=== PATIENT | male | born 1950 | race Caucasian/White ===

== ENCOUNTER 2017-02-22 11:20 | Inpatient (IN) | payer MEDICARE, OTHER ==
[~2017-02-22] VITALS: Ht 170.2 cm; Wt 51.9 kg
--- NOTE | ~2017-02-22 | FD ---
ADMIT: 02/24/2017 RM/LOC: 630 [facility] MR#: [id number] 2620 [facility] [address] [place] [phone] MANGO LARES [address] [place] [address] Final Diagnosis SEX: M AGE: 67 : 1950 ADMISSION DATE: 02/24/2017 DISCHARGE DATE: 02/25/2017 FINAL DIAGNOSIS: Syncope. COMPLICATING DIAGNOSES: 1. Dehydration. 2. Severe protein-calorie malnutrition. 3. Crohn disease. 4. Status post total colectomy. 5. Diabetes mellitus type 2. 6. Hypomagnesemia. 7. Post-polio syndrome. 8. Anemia of chronic disease. 9. Ileostomy status. Carter Ceron MD/ modl JOB #: [id number] CC: Carter Ceron MD, Attending Physician Carter Ceron MD, Family Physician
--- NOTE | ~2017-02-22 | WND ---
ADMIT: 02/22/2017 RM/LOC: 630 [facility] MR#: [id number] [address] [facility] [address] [place], [place] [address] MANGO LARES [address] [place] [address] W[facility] Care Clinic SEX: M AGE: 67 : 1950 DATE OF VISIT: 02/23/2017 TIME IN: Time in initially is 1100 hours to 1115 hours. I returned at 0130 hours to 0145 hours. Total time 30 minutes. TIME OUT: REASON FOR VISIT: Evaluation and treatment of peristomal irritation. A request for wound care from Dr. Rhodes. HISTORY OF PRESENT ILLNESS: This is a 67-year-old, male, well known to [facility]. He has a history of Crohn disease. He has been followed routinely by Wound Care since 2014 for care of peristomal irritation and also for incisional dehiscence. Most recently, he was seen by Wound Care in November of 2016. He had a history of Crohn disease and underwent a total proctocolectomy on 08/12/2016. He had an end ileostomy that was initially in the left upper quadrant that had recessed below the surface of the skin with deep creases. He also had abscesses that were drained by Interventional Radiology. He went to [place] at [facility], where Dr. Cardona revised the stoma and moved it to his left lower quadrant. He reports that he developed four abdominal abscesses after the surgery. He spent 3 weeks in a medically-induced coma. After he was released from [facility], he did go to [facility] for rehab. He has been in the [facility] for the last 2 weeks. He presented yesterday with syncope and volume depletion and was seen in the emergency room and admitted for further evaluation and cares. He also was noted to have significant yeast infection on his abdominal wall and around his stoma and into his perineal and groin and buttocks areas. PAST MEDICAL HISTORY: Fractured left hip. Syncope episodes. Complications of abdominal wall abscesses with drainage. Small bowel cutaneous fistulas. Mental status changes to all the above. Anemia of chronic disease. Crohn disease, status post total proctocolectomy. Sepsis. Malnutrition. Weight loss. Type 2 diabetes. Yeast infections. History of hyperlipidemia, vitamin B12 deficiency, magnesium deficiency, polio as a child, fractured left hip. ALLERGIES: Cephalosporin, morphine derivatives, penicillin, sulfa, and codeine. CURRENT MEDICATIONS: Per the MAR. Please see the MAR for further details. 1. Atarax. 2. Diflucan. 3. Effexor. 4. Flomax. 5. KCl. 6. Lopid. 7. Magnesium oxide. 8. Melatonin. 9. Orazinc. 10.Protonix. ADMIT: 02/22/2017 RM/LOC: 630 [facility] MR#: [id number] [address] [place] [id number] MANGO LARES [address] [place] [address] Wound Care Clinic SEX: M AGE: 67 : 1950 11.Zyrtec. 12.Flonase. 13.Lovenox. 14.Normal saline. PRN medications: 1. Colace. 2. Imodium. 3. Maalox. 4. Requip. 5. Tylenol. 6. Ultram. 7. Glucagon. 8. Nitrostat. FAMILY HISTORY: Significant for diabetes in his uncles, heart disease in his father. Father with skin cancer. SOCIAL HISTORY: He is . He is retired. He lives in [place] with his spouse. He has a Bachelor of Science degree. REVIEW OF SYSTEMS: He is examined in his hospital room where he is awake, alert, and oriented x3. He denies any recent fever or chills. No nausea or vomiting. No cough, cold, or chest pain. He states he is feeling much better since he had some fluids. He states that he does have a hard time getting enough fluids in. He said his weight is running around 110 pounds. PHYSICAL EXAMINATION: Focused exam to his abdomen. In his left lower quadrant is his stoma that is slightly oval, 1 cm x 2 cm, and elevates approximately 0.5 cm above the skin surface. The os is in the center but it tips slightly towards 12 o'clock. On his abdomen is a midline incision that is dehisced, 2.2 cm x 0.5 cm, depth of 0.5 cm. Visible wound base is bright red granulation tissue. He does have significant abdominal redness for an area of 12.5 cm x 31 cm on his abdomen. There are satellite communities. There are no open ulcerations noted. Into his groin for an area of 16 cm x 19 cm is a continuation of the redness with satellite communities, slight superficial openings in the groin folds, and perirectal area is red and 5 cm x 10 cm with satellite communities. No open ulcerations noted. ASSESSMENT: 1. Functioning end ileostomy SACS L1 hyperemic TV all quadrants. 2. Fungal dermatitis related to Clari and peristomal, perineal, and perirectal area. TREATMENT PLAN: He did have a shower and Dial soap was used. Area rinsed and patted dry. Aloe [place] antifungal was applied. Encouraged that this be done twice daily. To his stoma, the old ostomy appliance was removed without difficulty. The peristomal area was washed with water only. He does have ADMIT: 02/22/2017 RM/LOC: 630 [facility] MR#: [id number] [address] [address] MANGO LARES [address] [place] [id number] [facility] SEX: M AGE: 67 : 1950 nystatin powder that he can use at home, peristomal area, but today, we will use Adapt Stoma Powder that was placed on the abdomen and sealed with No Sting Barrier [place]out x2. The extra thin DuoDerm was then cut to fit around the stoma. An Adapt ring #[id number] was placed to peristomal area. The Coloplast Eskridge SenSura clip pouch #[id number] was applied with the Coloplast belt. Coloplast barrier strips were also placed around the edges. To the abdominal wound, after cleansing with warm soapy water, rinsing, and patting dry, Aquacel Ag was placed, covered with wound VAC drape. This dressing can be changed at the same time that his ostomy appliances are changed every 3 days and as needed for leakage. A new followup appointment in Wound Care outpatient clinic is scheduled for 03/03/2017, at 2 p.m. An E-script for marathon was sent to [facility]. Thank you for this referral and Wound will continue to follow. Radha Herrera APRN/ damien JOB #: [id number] CC: Carter Ceron, Attending Physician Carter Ceron, Family Physician
[~2017-02-22 11:20] MED LIST: ARBINOXA4 MG PO; B-12 INJ1000 MCG/M SQ; CARBINOXAMINE MA4 MG PO; DELTASONE DPS1 MG PO; DELTASONE DPS10 MG PO; DIFLUCAN DPS100 MG PO; DIFLUCAN DPS200 MG PO; EFFEXOR DPS75 MG PO; EFFEXOR XR150 MG PO; EFFEXOR XR75 MG PO; ENTOCORT EC DPS3 MG PO; ENTYVIO300 MG IV; FLAGYL-DPS500 MG PO; FLOMAX DPS0.4 MG PO; GLUCOPHAGE-DPS500 MG PO; HYDROXYZINE; INTRALIPID 20%500 ML IV; INVANZ1 G1 PO; KCL40 MEQ/30 PO; KLOR-CON M2020 MEQ PO; KLOR-CON20 MEQ PO; LEVAQUIN500 MG PO; LOPID DPS600 MG PO; LOPID600 MG PO; LUTEIN10 MG PO; MAALOX DPS30 ML PO; MAGNESIUM IV; METAMUCIL SF P3.4 GM PO; MOTRIN-DPS600 MG PO; MUCINEX600 MG PO; NASACORT16.9 ML NS; NORCO 5-325 TA1 EACH PO; PRILOSEC DPS20 MG PO; PRILOSEC10 M1 PO; QUESTRAN DPS4 GM PO; RAPAFLO8 MG PO; ROBITUSSIN100 MG/5 M PO; SFROWASA4 GM/60 ML PR; SINGULAIR10 MG PO; SLOW-MAG71.5 MG PO; SOD BICARB TAB650 MG PO; SODIUM CHLORIDE10 ML IV; SURFAK DPS240 MG PO; SYMBICORT 16010.2 GM IH; SYMBICORT80 MCG/6.9 IH; TPN IV; TYLENOL DPS325 MG PO; ULTRAM DPS50 MG PO; VANCOCIN-DPS1 GM IV; VANCOCIN250 MG PO; VENOFER200 MG/10 IV; VISTARIL-DPS50 MG PO; VITAMIN D400 UNI2 PO; ZINC CHELATED50 MG PO; ZINC50 M1 PO; ZYRTEC DPS10 MG PO; ZYRTEC10 M3 PO
--- NOTE | 2017-02-25 08:06 | HP ---
ADMIT: 02/22/2017 RM/LOC: 426 [facility] MR#: [id number] [address] [address] MNAGO LARES [address] [place] [address] History and Physical SEX: M AGE: 67 : 1950 DATE OF SERVICE: CHIEF COMPLAINT: Syncope, volume depletion. HISTORY: Mango Lares presents with history of syncope at home. He has had this happen to him before. He has advanced Crohn's, multiple operations, and has issues with maintaining his fluid status. He had one episode of near syncope and one episode of complete syncope early this morning. His called the paramedics. He had a borderline low blood pressures, was given 1 L of fluid in the emergency room with improvement in his symptoms, but it was not felt he was well enough to go home. He said he has otherwise not been feeling poorly as of late. This is in the background of a patient who has spent most of the last 3 months in either acute care or skilled care. He was at [facility] for 46 days due to complications of a bowel perforation and sepsis and respiratory failure. Eventually, he recovered and was transferred to [facility] for an additional 3 weeks of rehab. He has been home for about [address] Ceron in the office on February 19. I did review Dr. Ceron's narrative from that note. Assessment at that time being Crohn disease, status post total colectomy status post sepsis, malnutrition, weight loss, and type [address] Ceron noted significant yeast infection on his abdominal wall for which we elected to put him on Diflucan due to concern about drug interactions. Victor Hugo, once again reiterates that he has otherwise not been feeling ill. PAST MEDICAL HISTORY: Notable for background data which I just described, he was last inpatient at [facility] [place], September 20 to September 28 with a fractured left hip, and also from a syncopal episode. He has had complications of abdominal wall abscess, small bowel cutaneous fistula, mental status change secondary to all above; anemia of chronic disease. CHRONIC ILLNESSES: Crohn disease, depression, type 2 diabetes, hyperlipidemia, polio with chronic left leg weakness, osteoporosis, and osteoarthritis. PAST SURGICAL HISTORY: Surgeries include total colectomy uncertain as to what small-bowel he has had removed, he has had appendectomy, cholecystectomy, ventral hernia repairs, ileocolic fistula surgery, colostomy revision, tonsillectomy, orthopedic surgery for left hip fracture, and various colonoscopies. ALLERGIES: INTOLERANCE TO CEPHALOSPORINS, CODEINE, LORTAB, MORPHINE, PENICILLIN, PERCOCET, AND SULFA DRUGS. MEDICATIONS: By office record, he is on: 1. Calcium carbonate 500 mg once a day. 2. Prevacid 3 mg/mL 30 mg daily. 3. Gemfibrozil 600 mg once a day. 4. Hydroxyzine 50 mg two once a day. 5. Lidoderm patch b.i.d. ADMIT: 02/22/2017 RM/LOC: 426 [facility] MR#: [id number] [address] [address] MANGO LARES [address] [place] [address] History and Physical SEX: M AGE: 67 : 1950 6. Loperamide 2 mg q.i.d. 7. Magnesium chloride 200 mg/mL twice weekly infusion at [facility]. 8. Also gets normal saline 1 L at that time per the patient. 9. Melatonin 3 mg two at bedtime. 10.Metformin 500 mg once a day. 11.Nasacort spray once a day p.r.n. with Proventil, oxycodone, tramadol, Tylenol. 12.Also on Zyrtec 10 mg daily. 13.Venlafaxine 75 mg b.i.d. FAMILY HISTORY: Positive in various relatives of coronary artery disease, hypertension, osteoarthritis, Alzheimer's, depression, and migraine. SOCIAL HISTORY: He is retired. His accompanies him. He does not smoke or drink. REVIEW OF SYSTEMS: GENERAL: Denies chills or fever. ENT: No acute ear, nose, throat, or eye complaints. GI: As discussed above. He has had normal ostomy output. He has trouble taking enough fluids. He is not having any nausea or vomiting or severe abdominal pain at this time. : Voiding okay. MUSCLE, BONE, AND JOINT: He has chronic atrophy of his left leg and some weakness of that leg. This is the side that he had the hip fracture. Getting around mostly without any walking aids now. SKIN: Abdominal rash consistent with yeast around the ostomy. BACK: Nontender. NEURO/PSYCH: All satisfactory at this time. History of depression, stable. PHYSICAL EXAMINATION: GENERAL: This is a pleasant gentleman. In spite of all his problems that he has encountered, he is in good spirits when I interview him. VITAL SIGNS: Most recent vitals; temperature 96.2, pulse 82, respirations 16, blood pressure 107/66, O2 saturation 96% on room air. ENT: Oral mucous membranes are moist. No nasal discharge. Hearing satisfactory. Eyes are grossly normal. Pupils are equal. NECK: No tenderness. LUNGS: Clear throughout. Normal respiratory effort. HEART: Regular rhythm. I do not hear a murmur. BACK: Nontender to palpation of the spine or the rest of his back. ABDOMEN: Flat, nontender to palpation. Has an ostomy in the left lower quadrant. I believe this to be an ileostomy. No obvious hernias as a near completely resolved open area to the right of his ostomy. He has a large area of candidiasis of the skin surrounding the ostomy and in the groin. GENITALIA: Unremarkable to cursory exam other than the hand. EXTREMITIES: Upper extremities, limited exam grossly normal. Lower extremities, no edema in either leg. Left leg atrophic from prior polio. No swelling of the right leg. ADMIT: 02/22/2017 RM/LOC: 426 [facility] MR#: [id number] 2620 [facility] [address] [place] [id number] MANGO LARES [address] [place] [address] History and Physical SEX: M AGE: 67 : 1950 NEURO: Grossly intact. PSYCH: He is calm, not anxious or depressed. LABORATORY DATA: Labs were reviewed. His phosphorus is 2.9, corrected calcium 12.5 (this is a new finding of hypercalcemia). Creatinine is 1.4 which is a slight increase from baseline of 1.1, but somewhat in line with the previous readings in the hospital in September. Albumin is mildly decreased at 3.3. Total protein is elevated at 8.5. Liver functions, alkaline phosphatase elevated at 286, was 247 in November, 171 in September, and 92 in August. Glucose is currently normal range. He is diabetic. White count 10.6, hemoglobin 11.3. IMPRESSION: 1. Syncope probably secondary to volume depletion and hypertension. 2. New hypercalcemia, cause is unclear at this time. This will need to be evaluated further. 3. Chronic Crohn disease status post multiple surgeries. 4. Chronic hypomagnesemia. Today's magnesium is 1.5. 5. Some degree of malnutrition and weight loss. 6. Candidiasis of the skin of the abdominal wall. PLAN: We will continue to recheck his calcium in the morning. Also replace IV magnesium and recheck that. We will tentatively plan Diflucan if no significant drug interactions and pharmacy will assist us in that. As dietary, see about any additional dietary interventions and will adjust treatment as clinical course deems appropriate. Johnson Rhodes MD/ damien JOB #: [id number] CC: Carter Ceron, Attending Physician Carter Ceron, Family Physician
[2017-02-26] MEDS ORDERED: LOPID DPS600 MG PO (16:41)
[2017-02-26] MEDS ORDERED: DIFLUCAN DPS100 MG PO (16:41)
[2017-02-26] MEDS ORDERED: ATARAX DPS50 MG PO (16:42)
[2017-02-26] MEDS ORDERED: GLUCAGON EMERGEN1 MG IM (16:42)
[2017-02-26] MEDS ORDERED: LOPERAMIDE2 M1 PO (16:43)
[2017-02-26] MEDS ORDERED: MAGNESIUM200 MG/1 M IV (16:43)
[2017-02-26] MEDS ORDERED: MELATIN3 MG PO (16:44)
[2017-02-26] MEDS ORDERED: NASACORT16.9 ML NS (16:44)
[2017-02-26] MEDS ORDERED: ZYRTEC DPS10 MG PO (16:45)
[2017-02-26] MEDS ORDERED: EFFEXOR DPS75 MG PO (16:45)
[2017-02-26] MEDS ORDERED: ULTRAM DPS50 MG PO (16:45)
[2017-02-26] MEDS ORDERED: LUTEIN6 M1 PO (16:46)
[2017-02-26] MEDS ORDERED: PRILOSEC DPS20 MG PO (16:46)
[2017-02-26] MEDS ORDERED: POTASSIUM20 MEQ/15 PO (16:46)
[2017-02-26] MEDS ORDERED: REQUIP1 MG PO (16:47)
[2017-02-26] MEDS ORDERED: ZINC CHELATED50 MG PO (16:47)
[2017-02-26] MEDS ORDERED: ZOFRAN4 MG PO (16:48)
[2017-02-26] MEDS ORDERED: MAG-OX400 MG PO (16:48)
[2017-02-26] MEDS ORDERED: MYCOSTATIN PWD15 GM TP (16:48)
[2017-02-26] MEDS ORDERED: FLOMAX DPS0.4 MG PO (16:49)
[2017-02-26] MEDS ORDERED: VITAMIN D2000 UNI1 PO (16:49)
--- NOTE | 2017-03-01 10:31 | ER ---
ADMIT: 02/22/2017 RM/LOC: 426 MR#: [id number] 2620 [facility] [address] [place] [phone] ELYSSAMANGO BELTRAN [address] [place] [address] Emergency Room Report SEX: M AGE: 67 : 1950 DATE: 02/22/2017 ADDENDUM: A 67-year-old white male coming in after a syncopal episode. I believe that he was a little dehydrated. Labs are off. He has a corrected calcium of 12.1. At this time, really not finding anything. He does have significant disease mainly associated with his inflammatory bowel of Crohn's. Also, he has history of polio, diabetes. His blood sugar was 98 here. At this time, we gave him a liter of fluid. I spoke with Dr. Rhodes. We are going to observe him. He could be behind on fluids. He was concerned about that, and also, observe him and monitor the calcium or treat it. CONDITION ON DISCHARGE: Serious but stable. Cordell Cool MD/ damien JOB #: [id number] CC: Carter Ceron MD, Attending Physician Carter Ceron MD, Family Physician
== END 2017-02-25 10:30 | disposition home or self-care (01) | DRG 640 ==
LOC: ER 11:20 → 6PED 13:35 → 4PCU 13:35 → 6PED 02-23 10:45
PROVIDERS: ADMIT Family Medicine
DX: E86.0 Dehydration (principal); E43 Unspecified severe protein-calorie malnutrition; E83.52 Hypercalcemia; K50.00 Crohn's disease of small intestine without complications; B37.2 Candidiasis of skin and nail; Z68.1 Body mass index [BMI] 19.9 or less, adult; E11.9 Type 2 diabetes mellitus without complications; E83.42 Hypomagnesemia; G14 Postpolio syndrome; D63.8 Anemia in other chronic diseases classified elsewhere; Z79.84 Long term (current) use of oral hypoglycemic drugs; Z82.49 Family history of ischemic heart disease and other diseases of the circulatory system; Z90.49 Acquired absence of other specified parts of digestive tract; Z93.2 Ileostomy status

== ENCOUNTER → 2017-03-29 | Outpatient (CLI) | payer MEDICARE, OTHER ==
[~2017-03-29] MED LIST changes: +ATARAX DPS50 MG PO; +GLUCAGON EMERGEN1 MG IM; +LOPERAMIDE2 M1 PO; +LUTEIN6 M1 PO; +MAG-OX400 MG PO; +MAGNESIUM200 MG/1 M IV; +MELATIN3 MG PO; +MYCOSTATIN PWD15 GM TP; +POTASSIUM20 MEQ/15 PO; +REQUIP1 MG PO; +VITAMIN D2000 UNI1 PO; +ZOFRAN4 MG PO
== END | disposition home or self-care (01) ==
LOC: RAD.S 07:47
DX: K50.80 Crohn's disease of both small and large intestine without complications (principal); R10.11 Right upper quadrant pain